=== PATIENT | female | born 1965 ===

== ENCOUNTER 2021-12-17 16:03 | Observation (INO) | payer BC ==
[2021-12-17] MEDS ORDERED: HYDROcodone/Acetaminophen 5/325 mg Tablet PO PRN (16:19)
[2021-12-17] MEDS ORDERED: Zolpidem Tartrate 5 MG TAB PO PRN (16:19)
[2021-12-17] MEDS ORDERED: Ketorolac Tromethamine 30 MG/ML VIAL IVP PRN (16:19)
[2021-12-17] MEDS ORDERED: Morphine 4 MG/ML VIAL SLOW IVP PRN (16:19)
[2021-12-17] MEDS ORDERED: Oxybutynin 5 MG TAB PO PRN (16:19)
[2021-12-17] MEDS ORDERED: Ondansetron PF 4 MG/2 ML Vial IVP PRN (16:19)
[2021-12-17] MEDS ORDERED: diphenhydrAMINE 50 MG/ML VIAL IVP PRN (16:19)
[2021-12-17] MEDS ORDERED: Dextrose 50% Abboject 50 ML SYRINGE SLOW IVP PRN (16:25)
[2021-12-17] MEDS ORDERED: Dextrose 5% in Water 1,000 ML IV PRN (16:25)
[2021-12-17] MEDS ORDERED: HumaLOG 300 UNITS/3 ML VIAL SC PRN (16:25)
[2021-12-17 18:43] VITALS: BMI 37.1
[2021-12-17] MEDS: Docusate 100 MG CAP PO SCH (22:10)
[2021-12-17] MEDS: Sodium Chloride 0.9% 1,000 ML IV SCH (22:10)
[2021-12-17 23:14] LABS: SARS-CoV-2 PCR by NAA Not Detected (NotDetected)
[2021-12-18] MEDS: Sodium Chloride 0.9% 1,000 ML IV SCH ×2 (02:45→08:10)
[2021-12-18 05:56] LABS: #Basophils 0.1 thou/uL (0.0-0.2); #Eosinphils 0.3 thou/uL (0.0-0.7); #Lymphocytes 2.9 thou/uL (1.20-3.40); #Monocytes 0.8 thou/uL (0.11-0.59); #Neutrophils 4.5 thou/uL (1.40-6.50); %Eosinophils 3.2 % (0.0-10.0); %Lymphocytes 34.2 % (21.0-51.0); %Monocytes 9.5 % (0.0-10.0); %Neutrophils 52.2 % (42.0-75.0); Hemoglobin 12.5 g/dL (12.0-16.0); Mean Corpuscular HGB CONC 33.3 g/dL (32.0-36.0); Mean Corpuscular Hemoglobin 31.3 pg (27.0-31.0); Mean Corpuscular Volume 93.8 fL (78.0-98.0); Mean Platelet Volume 7.1 fL (7.4-10.4); Platelet Count 267 thou/uL (130-400); RBC Distribution Width 12.3 % (11.5-14.5); Red Blood Cell (RBC) Count 3.99 mill/uL (4.20-5.40); White Blood Cell (WBC) Count 8.6 thou/uL (4.8-10.8)
[2021-12-18 06:11] LABS: Anion Gap 13 mmol/L (10-20); BUN (Urea Nitrogen) 14 mg/dL (9.8-20.1); Calc. Creatinine Clearance 150 mL/min (70-130); Calcium 8.7 mg/dL (7.8-10.44); Carbon Dioxide 23 mmol/L (22-29); Chloride 106 mmol/L (98-107); Glucose 121 mg/dL (70-105); Potassium 3.2 mmol/L (3.5-5.1); Sodium 139 mmol/L (136-145)
[2021-12-18] MEDS ORDERED: Potassium Chloride 20 MEQ TAB PO SCH (07:00)
[2021-12-18] MEDS ORDERED: Tamsulosin HCl 0.4 MG CAP PO SCH (09:00)
[2021-12-18] MEDS: Docusate 100 MG CAP PO SCH (12:01)
[2021-12-18] MEDS ORDERED: Iothalamate Meglumine 60% 50 ML VIAL FS ONE (13:17)
[2021-12-18] MEDS ORDERED: Fentanyl 250 MCG/5 ML VIAL ONE (13:23)
[2021-12-18] MEDS ORDERED: PROPOFOL 200 MG/20 ML VIAL ONE (13:39)
[2021-12-18] MEDS ORDERED: Ondansetron PF 4 MG/2 ML Vial ONE (13:39)
[2021-12-18] MEDS ORDERED: Lidocaine 1% PF 5 ML VIAL ONE (13:39)
[2021-12-18] MEDS ORDERED: Promethazine HCl 25 MG/ML VIAL IVPB PRN (14:03)
[2021-12-18] MEDS ORDERED: Promethazine HCl 25 MG/ML VIAL IM PRN (14:03)
[2021-12-18] MEDS ORDERED: Ondansetron HCl/PF 4 MG/2 ML Vial IVP PRN (14:03)
[2021-12-18 16:33] VITALS: BP 118/68; TEMP 97.7
[2021-12-18] MEDS ORDERED: Hyoscyamine Sulfate SL 0.125 mg Tablet PO SCH (17:00)
[2021-12-23 11:19] LABS: CA Oxalate Dihydrate 50 % (.); CA Oxalate Monohydrate 50 % (.); Color Tan (.)
== END 2021-12-18 16:30 | disposition home or self-care (01) ==
LOC: SURG B 16:03
PROVIDERS: ADMIT Urology; ATTEND Urology
PROC: 0TC78ZZ Extirpation of Matter from Left Ureter, Via Natural or Artificial Opening Endoscopic (ICD-10-PCS; principal; 2021-12-18)
PROC: 0T778DZ Dilation of Left Ureter with Intraluminal Device, Via Natural or Artificial Opening Endoscopic (ICD-10-PCS; 2021-12-18)
DX: N20.1 Calculus of ureter (principal); N30.00 Acute cystitis without hematuria; N13.4 Hydroureter; E11.9 Type 2 diabetes mellitus without complications; Z79.2 Long term (current) use of antibiotics; Z79.4 Long term (current) use of insulin; Z79.84 Long term (current) use of oral hypoglycemic drugs; Z79.899 Other long term (current) drug therapy; Z20.822 Contact with and (suspected) exposure to COVID-19
CPT/HCPCS: 36415; 36416; 74420; 80048; 82365; 85025; 88300; C2617; J1885; J1956; J2405; J2704; J3010; J7050; Q9961-U8; U0003; U0005